=== PATIENT | male | born 1960 ===

== ENCOUNTER 2022-07-22 13:45 | Outpatient (CLI) | payer MEDICAID, SELFPAY ==
--- NOTE | 2022-07-22 | DI.RAD_ITS ---
Exam(s) XR FINGER RT INDEX EXAM: XR FINGER RT INDEX CLINICAL HISTORY: RT INDEX FINGER PAIN S/P SCREWING A SCREW INTO IT, INFECTION; ? BONY INJURY. TECHNIQUE: 2D digital imaging was performed of the right finger. Three views were obtained. PA/AP, oblique, and lateral views were obtained. COMPARISON: No exams were available for comparison FINDINGS: BONES: No acute fracture is present. No bony destructive lesion is seen. JOINTS: No dislocation present. Degenerative changes are seen at the PIP and DIP joints. SOFT TISSUE: There are bony densities posterior to the PIP and DIP joints. The have the appearance o f chronic soft tissue densities. There is soft tissue swelling. IMPRESSION: 1. No evidence of acute fracture, dislocation, or subluxation. 2. Soft tissue swelling of the finger. No radiopaque foreign bodies. 3. Well corticated densities adjacent to the degenerative changes at the DIP and PIP joints which gill ear chronic. DATA REPOSITORY: RADIATION DOSE DELIVERED:
== END 2022-07-22 14:05 ==
LOC: DI 13:45
PROVIDERS: PCP Family Medicine; Visit Provider Physician Assistant Medical
DX: M79.644 Pain in right finger(s) (principal); M79.89 Other specified soft tissue disorders; M19.041 Primary osteoarthritis, right hand
CPT/HCPCS: 73140